=== PATIENT | female | born 1950 | race Caucasian/White ===

== ENCOUNTER 2022-07-23 08:04 | Outpatient (CLI) | payer MEDICARE, SELFPAY | END 2022-07-23 08:05 | disposition home or self-care (01) | LOC: NFLDREF 07-26 11:50 | PROVIDERS: PCP Family Medicine; Referring Provider Family Medicine; Visit Provider Family Medicine | DX: E78.5 Hyperlipidemia, unspecified (principal); E03.9 Hypothyroidism, unspecified; I10 Essential (primary) hypertension; E05.00 Thyrotoxicosis with diffuse goiter without thyrotoxic crisis or storm | CPT/HCPCS: 80053; 80061; 84443 ==

== ENCOUNTER 2022-09-22 11:51 | Outpatient (CLI) | payer MEDICARE, SELFPAY ==
--- NOTE | 2022-09-22 13:00 | CRLHL7_ITS ---
For Patients: As a result of the Century Cures Act, medical imaging exams and procedure reports are released immediately into your electronic medical record. You may view this report before your referring provider. If you have questions, please contact your health care provider. DXA BONE MINERAL DENSITY STUDY Current height (in): 52. Weight (lb): 140.0. Menopause age: 52. Ethnicity: White. 1. Have you had a previous hip or vertebral fracture? No. 2. Have you had any fractures during your adult life which did not result from significant trauma (e.g., auto accident)? No. 3. Did either of your parents have a hip fracture? No. 4. Do you smoke? No. 5. Have you ever taken Glucocorticoids? No. 6. Do you have rheumatoid arthritis? No. 7. Do you have secondary osteoporosis? No. 8. Do you drink 3 or more alcoholic drinks per day? No. 9. Are you being treated for osteoporosis? No. 10. Have you ever taken any of the following medications: Actonel, Evista, Fosamax, Miacalcin, Reclast, Boniva, Forteo, HRT (i.e. estrogen/hormone therapy), Protelos, Prolia, Vitamin D, Calcium, other ??? please specify. ANSWER: Yes, vitamin D, calcium. 11. Do you have any of the following medical conditions: Anorexia or bulimia, asthma or emphysema, end stage renal disease, hyperparathyroidism, any seizure disorders, cancer, inflammatory bowel diseases, hysterectomy, other ??? please specify. ANSWER: Yes, Graves??? disease. 12. What was your maximum height (inches)? 63. 13. Do you perform weight bearing exercise regularly? No. 14. Do you regularly consume dairy products? Yes. 15. Do you drink caffeinated beverages? Yes. 16. At what age did your period start? 13. 17. Are you premenopausal? No. 18. How many full term pregnancies have you had? 0. 19. Have you ever missed your period for more than 6 months in a row (not including or menopause)? No. TECHNIQUE: Bone mineral density study was performed using the [employer]. FINDINGS: The results of the study expressed as bone mineral density (BMD) are as follows: Lumbar spine L1 to L3: BMD: 0.863 g/cm2. T-score: -1.4. Z-score: 0.8. Neck Left: BMD: 0.638 g/cm2. T-score: -1.9. Z-score: -0.0. Right: BMD: 0.600 g/cm2. T-score: -2.2. Z-score: -0.3. Total Left: BMD: 0.754 g/cm2. T-score: -1.5. Z-score: 0.1. Right: BMD: 0.649 g/cm2. T-score: -2.4. Z-score: -0.8. IMPRESSION: Osteopenia. FRAX 10-year Fracture Risk Major Osteoporotic Fracture: 13 percent Hip Fracture: 3.0 percent Reported Risk Factors: [place] () Neck BMD=0.600, BMI=24.8 Carlito Pruett M.D. Diagnostic Radiologist [email or web address] ALFONSO/alvin / be/Dictated by: Carlito Pruett MD @ 09/22/2022 3:32:00 PM (Electronically Signed)
== END 2022-09-22 11:52 | disposition home or self-care (01) ==
LOC: RAD 11:53
PROVIDERS: PCP Family Medicine; Visit Provider Family Medicine
DX: E05.00 Thyrotoxicosis with diffuse goiter without thyrotoxic crisis or storm (principal); Z78.0 Asymptomatic menopausal state; M85.89 Other specified disorders of bone density and structure, multiple sites
CPT/HCPCS: 77080

== ENCOUNTER 2023-07-04 08:30 | Outpatient (CLI) | payer MEDICARE, SELFPAY ==
--- OUTSIDE RECORDS SUMMARY | 2023-07-08 20:55 | XMS_ITS | Clinical Summary ---
Author Name Unknown Organization [facility] Address [place], [place] [address] Care Team Providers Care Acoustical Engineer Name Role Phone Isma Hsu MD Primary Care Provider [phone] Allergies Active Allergy Reactions Criticality Noted Date Comments Sulfa (Sulfonamide Antibiotics) Other - Describe In Comment Field Unknown 08/04/2014 Joint pain. Medications Medication Sig Dispensed Refills Start Date End Date Status artificial tears, hypromellose 0.5%, (ISOPTO TEARS) 0.5 % ophthalmic drop Place 1 Drop into both eyes 4 times daily if needed for Dry Eyes. Active cholecalciferol (VITAMIN D3) 5,000 unit capsule Take 5,000 Units by mouth once daily. 40 units = 1 mcg (5000 units = 125 mcg) Active C,E,zinc,copper 11/yjmli9i/lut (OCUVITE ADULT 50 PLUS ORAL) Take 1 capsule by mouth once daily. Active lactobacillus combination no.8 (ADULT PROBIOTIC ORAL) Takes probiotic gummy - 1 chew gummy daily. Active multivit-minerals/ folic acid (ADULT MULTIVITAMIN GUMMIES ORAL) Take 2 Tabs by mouth once daily. Active MAGNESIUM ORAL Take 1 tablet by mouth once daily. For cramps Active POTASSIUM ORAL Take 1 tablet by mouth once daily. 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 90 tablet 06/29/2019 Active atorvastatin (LIPITOR) 20 mg tabletIndications: Acute ischemic right BODY COMPONENT ENGINEER stroke (HC) Take 1 tablet by mouth once daily with evening meal. 90 tablet 06/28/2019 Active WalkerIndications: Closed trimalleolar fracture of right ankle, initial encounter Walker with front wheels for home use. 1 Each 12/29/2020 Active amLODIPine (NORVASC) 5 mg tablet Take 5 mg by mouth once daily. 10/09/2020 Active levothyroxine (SYNTHROID) 75 mcg tablet Take 75 mcg by mouth once daily. 10/08/2020 Active oxyCODONE-acetamin ophen (PERCOCET) 5-325 mg per tabletIndications: Closed displaced pilon fracture of left tibia, initial encounter,Other closed fracture of distal end of right fibula, initial encounter Take 1 tablet by mouth every 4 to 6 hours as needed for pain. Maximum of 10 tablets per 24 hours. Max acetaminophen dose: 4000 mg in 24 hours. 20 Tablet 01/02/2021 Active hydrOXYzine pamoate (VISTARIL) 25 mg capsuleIndications :Closed displaced pilon fracture of left tibia, initial encounter,Other closed fracture of distal end of right fibula, initial encounter Take 1-2 Capsules (25-50 mg) by mouth every 6 hours if needed for nausea/vomiting. 15 Capsule 01/02/2021 Active CrutchIndications: Closed displaced pilon fracture of left tibia, initial encounter For home use. 2 Each 01/02/2021 Active enoxaparin (LOVENOX) 40 mg/0.4 mL injectionIndicatio ns:Closed displaced pilon fracture of left tibia, initial encounter,Other closed fracture of distal end of right fibula, initial encounter,Acute ischemic right BODY COMPONENT ENGINEER stroke (HC) Inject 40 mg subcutaneously one time daily. 14 Each 01/02/2021 Active omega-3 fatty acids (FISH OIL CONCENTRATE ORAL) Take 1 Tablet by mouth once daily. Active ascorbic acid, vitamin C, (Vitamin C) 100 mg tablet Take 100 mg by mouth once daily. Active Coenzyme Q10 (Co Q-10) 10 mg cap Take 10 mg by mouth once daily. Active Active Problems Problem Noted Date Diagnosed Date Acute ischemic right BODY COMPONENT ENGINEER stroke 06/26/2019 Postablative hypothyroidism 06/26/2019 Left homonymous hemianopsia 06/26/2019 Immunizations Name Administration Dates Next Due Influenza, High-dose Inactivated 08/23/2012 Influenza, IIV3 (Age >=3 years) 04/07/2012 Influenza, Inactivated AIIV4 (Age 65+ Years) Preserv Free 02/17/2021 Pneumococcal Poly,23-Valent (Pneumovax) 08/27/19 10 Tdap 08/30/2012,04/07/2012 Family History Medical History Relation Name Comments Cancer Brother a rare form, in lymph nodes, in teeth; age 61, had a large mass between eyes Atrial fibrillation Father age 54, probably from cocaine use Stroke Maternal Grandfather Cancer-breast Maternal Grandmother Heart attack Maternal Grandmother 95 Heart failure Maternal Grandmother Cataracts Mother Diabetes type II Mother Heart attack Mother massive Leukemia Mother of it 83 Stroke Paternal Grandmother Brain cancer Sister treated at [facility] Diabetes type II Sister Diabetic kidney disease Sister Relation Name Status Comments Brother Father Maternal Grandfather Maternal Grandmother Mother Paternal Grandmother Sister Social History Tobacco Use Types Packs/Day Years Used Date Smoking Tobacco: Former Cigarettes 1 40 1 969 - 1980 Smokeless Tobacco: Never Tobacco Cessation:Counseling Given: Yes Alcohol Use Standard Drinks/Week Comments Not Currently 0 (1 standard drink = 0.6 oz pur e alcohol) Social Connections Answer Date Recorded Frequency of Communication with Friends and Fami ly Not on file 03/12/2021 Financial Resource Strain Answer Date R ecorded Difficulty of Paying Living Expenses Not on file 03/12/2021 Difficulty of Paying Living Expenses Not on file 03/12/2021 Sex and Gender Information Value Date Recorded Sex Assigned at Not on file Gender Identity Not on file Sexual Orientation Not on file Obstetrics History Last Filed Vital Signs Vital Sign Reading Time Taken Comments Blood Pressure 154/89 07/29/2021 8:11 AM CDT Pulse 76 07/29/2021 8:11 AM CDT Temperature 36.2 ??C (97.2 ??F) 01/02/2021 4:24 PM CD T Respiratory Rate 14 05/26/2021 8:46 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 Oxygen Saturation 92% 01/02/2021 6:00 PM CDT Inhaled Oxygen Concentration - - Weight 66.4 kg (146 lb 6.4 oz) 01/02/2021 11:39 AM CDT Height 158.8 cm (5' 2.5) 01/02/2021 11:39 AM CD T Body Mass Index 26.35 01/02/2021 11:39 AM CDT Plan of Treatment Health Maintenance Due Date Last Done Comments Depression screening for age 12+ 1962 BMI (ht and wt on same day) for age 18+ 1968 Hepatitis C screening for ag e 18-79 1968 Colonoscopy through age 75 12/15/1995 Mammogram for age 45-75 12/15/1995 Zoster (shingles) series for age 50+ (1 of 2) 2000 DEXA/DXA scan for age 65+ 12/15/2015 Medicare Wellness for age 65+ 12/15/2015 Pneumococcal series for age 65+ (2 of 2 - PCV) 12/15/2015 08/26/2009 Tetanus booster 08/30/2022 08/30/2012, 04/07/2012 COVID-19 vaccine series ( season) 2022 06/27/2021, 11/11/2020, 05/01/2020, Additional history exists Influenza for age 65+ 11/20/2023 02/17/2021 , 08/23/2012, 04/07/2012 Lipids for age 45-75 06/26/2024 06/27/2019 Tdap Completed 08/30/2012, 04/07/2012 Medical Devices Implanted Type Area Steel Loader Device Identifier Shelf Expiration Date Model / Serial / Lot Screw Sm Joint 3.5x50mm Variax 2 Lock Titnm - [id number] Implanted:Qty : 1 on 01/02/2021 by Saeed Vasquez DPM at [facility] Ortho Imp.,Screw s & Plates Right: Ankle [employer] 01/02/2021 [id number] / / N/A Plate Ankle 5 Hole Variax - [id number] Implanted:Qty : 1 on 01/02/2021 by Saeed Vasquez DPM at [facility] Ortho Imp.,Screw s & Plates Right: Ankle [employer] 01/02/2021 [id number] / / NA Screw Sm Joint 3.5x14mm Variax 2 Lock Titnm - [id number] Implanted:Qty : 4 on 01/02/2021 by Saeed Vasquez DPM at [facility] Ortho Imp.,Screw s & Plates Right: Ankle [employer] 01/02/2021 [id number] / / N/A Screw Sm Joint 3.5x12mm Variax 2 Lock Titnm - [id number] Implanted:Qty : 1 on 01/02/2021 by Saeed Vasquez DPM at [facility] Ortho Imp.,Screw s & Plates Right: Ankle [employer] 01/02/2021 [id number] / / N/A Washer For Variax 2 Screws Implanted:Qty : 3 on 01/02/2021 by Saeed Vasquez DPM at [facility] Ortho Implants, Misc. Right: Ankle [employer] 01/02/2021 [id number] / / N/A Description:Washer for Varia x 2 screws Screw Sm Joint 4x34mm [employer] Part Thread Titnm - [id number] Implanted:Qty : 1 on 01/02/2021 by Saeed Vasquez DPM at [facility] Right: Ankle [employer] 01/02/2021 [id number] / / N/A Screw Sm Joint 4x36mm [employer] Part Thread Titnm - [id number] Implanted:Qty : 1 on 01/02/2021 by Saeed Vasquez DPM at [facility] Right: Ankle [employer] 01/02/2021 [id number] / / N/A Screw Sm Joint 4x40mm [employer] Part Thread Titnm - [id number] Implanted:Qty : 1 on 01/02/2021 by Saeed Vasquez DPM at [facility] Right: Ankle [employer] 01/02/2021 [id number] / / N/A Screw Sm Joint 3.5x26mm Variax 2 Bone - [id number] Implanted:Qty : 2 on 01/02/2021 by Saeed Vasquez DPM at [facility] Right: Ankle [employer] 01/02/2021 [id number] / / N/A Screw Sm Joint 3.5x46mm Variax 2 Lock Titnm - [id number] Implanted:Qty : 1 on 01/02/2021 by Saeed Vasquez DPM at [facility] Right: Ankle [employer] 01/02/2021 [id number] / / N/A Explanted Type Area Steel Loader Device Identifier Shelf Expiration Date Model / Serial / Lot K-Wire 2mm Variax W/Stop - [id number] Explanted:Qty: 1 on 01/02/2021 by Saeed Vasquez DPM at [facility] Right: Ankle [employer] 01/02/2021 [id number] / / N/A Procedures Procedure Name Priority Date/Time Associated Diagnosis Comments LIPID PANEL Early AM 06/27/2019 6:06 AM CDT from Last 3 Months or Most Recently Relevant to Health Maintenance Results * (ABNORMAL) Lipid Panel (06/27/2019 6:06 AM CDT) CHOLESTEROL,TOTAL 192 100 - 199 mg/dL 06/27/2019 7:12 AM CDT [facility] TRIGLYCERIDES 86 <150 mg/dL 06/27/2019 7:12 AM CDT [facility] HDL CHOLESTEROL 46 >40 mg/dL 0 7:12 AM CDT [facility] NON-HDL CHOLESTEROL 146(H) <145 mg/dl 06/27/2019 7:12 AM CDT [facility] CHOL/HDL RATIO 4.17 <4.50 06/27/2019 7:12 AM CDT [facility] LDL CHOLESTEROL 129 <=130 mg/dL 06/27/2019 7:12 AM CDT [facility] PROVIDER ORDERED STATUS RANDOM 06/27/2019 7:12 AM CDT [facility] Blood BLOOD SPECIMEN / Unknown Venipuncture / Unknown 06/27/2019 6:06 AM CDT 06/27/2019 6:47 AM CDT Jere Rosen MD CHEMISTRY [facility] [address] [place] [address], from Last 3 Months or Most Recently Relevant to Health Maintenance Advance Directives * Full Code (Latest Code Status on File) Date Activated Date Inactivated Comments 01/02/2021 11:13 AM 01/02/2021 9:28 PM Question Answer Comments Code Status Discussion: Discussed * Full Code Date Activated Date Inactivated Comments 06/26/2019 6:40 PM 06/28/2019 2:44 PM Question Answer Comments Code Status Discussion: Per Advance Care Plan Care Teams Acoustical Engineer Relationship Specialty Start Date End Date Isma Hsu MD [address] [place] [id number] PCP - General Family Practice 08/09/19
== END 2023-07-04 08:31 | disposition home or self-care (01) ==
LOC: NFLDREF 07-08 20:53
PROVIDERS: PCP Family Medicine; Referring Provider Family Medicine; Visit Provider Family Medicine
DX: E78.5 Hyperlipidemia, unspecified (principal); E03.9 Hypothyroidism, unspecified; I10 Essential (primary) hypertension
CPT/HCPCS: 80053; 80061; 84443

== ENCOUNTER 2023-08-23 10:11 | Outpatient (CLI) | payer MEDICARE, SELFPAY ==
--- OUTSIDE RECORDS SUMMARY | 2023-08-23 10:15 | XMS_ITS | Clinical Summary ---
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 Postablative hypothyroidism 06/26/2019 Left homonymous [...] Paternal Grandmother Brain cancer Sister treated at [facility] Diabetes type II Sister Diabetic kidney [...] T Respiratory Rate 14 05/26/2021 8:46 AM 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 Oxygen Saturation 92% 01/02/2021 6:00 PM CDT [...] 08/30/2012, 04/07/2012 Medical Devices Implanted Type Area Water Purification Chemist Device Identifier Shelf Expiration Date Model / Serial / Lot Screw Sm Joint 3.5x50mm Variax 2 Lock Titnm - [id number] Implanted:Qty : 1 on 01/02/2021 by Saeed Vasquez DPM at [facility] Ortho Imp.,Screw s & Plates Right: Ankle [employer] 01/02/2021 [id number] / / N/A Plate Ankle 5 Hole [employer]ariax - [id number] Implanted:Qty : 1 on 01/02/2021 by Saeed Vasquez DPM at [facility] Ortho Imp.,Screw s & Plates Right: Ankle [employer] 01/02/2021 [id number] / / NA Screw Sm Joint 3.5x14mm Variax 2 Lock Titnm - [id number] Implanted:Qty : 4 on 01/02/2021 by Saeed Vasquez DPM at [facility] Ortho Imp.,Screw s & Plates Right: Ankle [employer] 01/02/2021 [id number] / / N/A Screw Sm Joint 3.5x12mm V[employer]x 2 Lock Titnm - [id number] Implanted:Qty : 1 on 01/02/2021 by Saeed Vasquez DPM at [facility] Ortho Imp.,Screw s & Plates Right: Ankle [employer] 01/02/2021 [id number] / / N/A Washer For Variax 2 Screws Implanted:Qty : 3 on 01/02/2021 by Saeed Vasquez DPM at [facility] Ortho Implants, Misc. Right: Ankle [employer] 01/02/2021 [id number] / / N/A Description:Washer for Varia x 2 screws Screw Sm Joint 4x34mm [employer] Part Thread Titnm - [id number] Implanted:Qty : 1 on 01/02/2021 by Saeed Vasquez DPM at [facility] Right: Ankle [employer] 01/02/2021 [id number] / / N/A Screw Sm Joint 4x36mm [employer] Part Thread Titnm - [id number] Implanted:Qty : 1 on 01/02/2021 by Saeed Vasquez DPM at [facility] Right: Ankle [employer] 01/02/2021 [id number] / / N/A Screw Sm Joint 4x40mm [employer] Part Thread Titnm - [id number] Implanted:Qty : 1 on 01/02/2021 by Saeed Vasquez DPM at [facility] Right: Ankle [employer] 01/02/2021 [id number] / / N/A Screw Sm Joint 3.5x26mm Variax 2 Bone - [id number] Implanted:Qty : 2 on 01/02/2021 by Saeed Vasquez DPM at [facility] Right: Ankle [employer] 01/02/2021 [id number] / / N/A Screw Sm Joint 3.5x46mm Variax 2 Lock Titnm - [id number] Implanted:Qty : 1 on 01/02/2021 by Saeed Vasquez DPM at [facility] Right: Ankle [employer] 01/02/2021 [id number] / / N/A Explanted Type Area Water Purification Chemist Device Identifier Shelf Expiration Date Model / Serial / Lot K-Wire 2mm Variax W/Stop - [id number] Explanted:Qty: 1 on 01/02/2021 by Saeed Vasquez DPM at [facility] Right: Ankle [employer] 01/02/2021 [id number] / / N/A Procedures Procedure Name Priority Date/Time Associated Diagnosis Comments LIPID PANEL Early AM 06/27/2019 6:06 AM CDT from Last 3 Months or Most Recently Relevant to Health Maintenance Results * (ABNORMAL) Lipid Panel (06/27/2019 6:06 AM CDT) CHOLESTEROL,TOTAL 192 100 - 199 mg/dL 06/27/2019 7:12 AM CDT [facility] TRIGLYCERIDES 86 <150 mg/dL 06/27/2019 7:12 AM CDT [facility] HDL CHOLESTEROL 46 >40 mg/dL 0 7:12 AM CDT [facility] NON-HDL CHOLESTEROL 146(H) <145 mg/dl 06/27/2019 7:12 AM CDT [facility] CHOL/HDL RATIO 4.17 <4.50 06/27/2019 7:12 AM CDT [facility] LDL CHOLESTEROL 129 <=130 mg/dL 06/27/2019 7:12 AM CDT [facility] PROVIDER ORDERED STATUS RANDOM 06/27/2019 7:12 AM CDT [facility] Blood BLOOD SPECIMEN / Unknown Venipuncture / Unknown 06/27/2019 6:06 AM CDT 06/27/2019 6:47 AM CDT Jere Rosen MD CHEMISTRY [facility] [address] [place] [address], [place] from Last 3 Months or Most Recently [...] Discussion: Per Advance Care Plan Care Teams Lean Six Sigma Senior Specialist Relationship Specialty Start Date End Date Isma Hsu MD [address] [place] [address] PCP - General Family Practice 08/09/19
--- NOTE | 2023-08-23 10:30 | CRLHL7_ITS ---
For Patients: As a result of the Century Cures Act, medical imaging exams and procedure reports are released immediately into your electronic medical record. You may view this report before your referring provider. If you have questions, please contact your health care provider. DXA BONE MINERAL DENSITY STUDY Current height (in): 62.0. Weight (lb): 134.0. Menopause age: 52. Ethnicity: White. Reason for exam: Osteopenia. On Alendronate. 1. Have you had a previous hip or vertebral fracture? No. 2. Have you had any fractures during your adult life which did not result from significant trauma (e.g., auto accident)? Yes. 3. Did either of your parents have a hip fracture? No. 4. Do you smoke? No. 5. Have you ever taken Glucocorticoids? No. 6. Do you have rheumatoid arthritis? No. 7. Do you have secondary osteoporosis? No. 8. Do you drink 3 or more alcoholic drinks per day? No. 9. Are you being treated for osteoporosis? Yes. 10. Have you ever taken any of the following medications: Actonel, Evista, Fosamax, Miacalcin, Reclast, Boniva, Forteo, HRT (i.e. estrogen/hormone therapy), Protelos, Prolia, Vitamin D, Calcium, other ??? please specify. ANSWER: Yes, vitamin D, calcium, Fosamax. 11. Do you have any of the following medical conditions: Anorexia or bulimia, asthma or emphysema, end stage renal disease, hyperparathyroidism, any seizure disorders, cancer, inflammatory bowel diseases, hysterectomy, other ??? please specify. ANSWER: Yes, other; Graves. 12. What was your maximum height (inches)? 63. 13. Do you perform weight bearing exercise regularly? No. 14. Do you regularly consume dairy products? Yes. 15. Do you drink caffeinated beverages? Yes. 16. At what age did your period start? 13. 17. Are you premenopausal? No. 18. How many full-term pregnancies have you had? 0. 19. Have you ever missed your period for more than 6 months in a row (not including or menopause)? No. TECHNIQUE: Bone mineral density study was performed using the [employer]. FINDINGS: The results of the study expressed as bone mineral density (BMD) are as follows: Lumbar spine L1 to L3: BMD: 0.862 g/cm2. T-score: -1.4. Z-score: 0.8 Neck Left: BMD: 0.623 g/cm2. T-score: -2.0. Z-score: -0.1 Right: BMD: 0.584 g/cm2. T-score: -2.4. Z-score: -0.4 Total Left: BMD: 0.748 g/cm2. T-score: -1.6. Z-score: 0.1 Right: BMD: 0.648 g/cm2. T-score: -2.4. Z-score: -0.8 IMPRESSION: Osteopenia. *Comparison exams done prior to 08/2019 were performed on different unit, [employer]. COMPARISON: Compared with scan of 09/22/2022, the bone mineral density decreased by 0.2 percent at the spine and decreased by 0.5 percent at the hip. Carlito Pruett M.D. Diagnostic Radiologist [email or web address] Transcribed: 2:35 pm DW/Dictated by: Carlito Pruett MD @ 08/23/2023 12:20:00 PM (Electronically Signed)
== END 2023-08-23 10:12 | disposition home or self-care (01) ==
LOC: RAD 10:13
PROVIDERS: PCP Family Medicine; Visit Provider Family Medicine
DX: M85.80 Other specified disorders of bone density and structure, unspecified site (principal); M85.89 Other specified disorders of bone density and structure, multiple sites
CPT/HCPCS: 77080

== ENCOUNTER 2023-11-07 09:00 | Outpatient (CLI) | payer MEDICARE, SELFPAY ==
--- OUTSIDE RECORDS SUMMARY | 2023-11-08 08:40 | XMS_ITS | Clinical Summary ---
Author Organization [facility] Address [place], [place] [address] Care Team Providers Care Brace Maker Name Role Phone Isma Hsu MD Primary Care Provider [phone] Allergies Active Allergy Reactions Criticality Noted Date [...] (5000 units = 125 mcg) Active C,E,zinc,copper 11/tcxyp5g/lut (OCUVITE ADULT 50 PLUS ORAL) Take 1 [...] mg enteric coated tabletIndications: Acute ischemic right SCIENCE JOB TITLES stroke (HC) Take 1 tablet by mouth once daily with a meal. 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 Imp.,Screw s & Plates Right: Ankle [employer] [facility] [employer] 01/02/2021 [id number] / / N/A Plate Ankle 5 Hole Variax - [id number] Implanted:Qty : 1 on 01/02/2021 by Saeed Vasquez DPM at [facility] Orth[facility] Imp.,Screw s & Plates Right: Ankle [employer] [facility] 01/02/2021 [id number] / / NA Screw Sm Joint 3.5x14mm Variax 2 Lock Titnm - [id number] Implanted:Qty : 4 on 01/02/2021 by Saeed Vasquez DPM at [facility] Ortho Imp.,Screw s & Plates Right: Ankle [employer] 01/02/2021 [id number] / / N/A Screw Sm Joint 3.5x12mm Variax 2 Lock Titnm - [id number] Implanted:Qty : 1 on 01/02/2021 by Saeed Vasquez DPM at [facility] Ortho Imp.,Screw s & Plates Right: Ankle [employer] [facility] 01/02/2021 [id number] / / N/A Washer For Variax 2 Screws Implanted:Qty : 3 on 01/02/2021 by Saeed Vasquez DPM at [facility] Ortho Implants, Misc. Right: Ankle [facility] 01/02/2021 [id number] / / N/A Description:Washer for Varia x 2 screws Screw Sm Joint 4x34mm [employer] Part Thread Titnm - [id number] Implanted:Qty : 1 on 01/02/2021 by Saeed Vasquez DPM at [facility] Right: Ankle [facility] 01/02/2021 [id number] / / N/A Screw Sm Joint 4x36mm [employer] Part Thread Titnm - [id number] Implanted:Qty : 1 on 01/02/2021 by Saeed Vasquez DPM at [facility] Right: Ankle [facility] 01/02/2021 [id number] / / N/A Screw Sm Joint 4x40mm [employer] Part Thread Titnm - [id number] Implanted:Qty : 1 on 01/02/2021 by Saeed Vasquez DPM at [facility] Right: Ankle [facility] 01/02/2021 [id number] / / N/A Screw Sm Joint 3.5x26mm Variax 2 Bone - [id number] Implanted:Qty : 2 on 01/02/2021 by Saeed Vasquez DPM at [facility] Right: Ankle [facility] 01/02/2021 [id number] / / N/A Screw Sm Joint 3.5x46mm Variax 2 Lock Titnm - [id number] Implanted:Qty : 1 on 01/02/2021 by Saeed Vasquez DPM at [facility] Right: Ankle [facility] 01/02/2021 [id number] / / N/A Explanted Type Area Artist'S Model Device Identifier Shelf Expiration Date Model / Serial / Lot K-Wire 2mm Variax W/Stop - [id number] Explanted:Qty: 1 on 01/02/2021 by Saeed Vasquez DPM at [facility] Right: Ankle [facility] 01/02/2021 [id number] / / N/A Procedures Procedure Name Priority Date/Time Associated Diagnosis Comments LIPID PANEL Early AM 06/27/2019 6:06 AM CDT from Last 3 Months or Most Recently Relevant to Health Maintenance Results * (ABNORMAL) Lipid Panel (06/27/2019 6:06 AM CDT) CHOLESTEROL,TOTAL 192 100 - 199 mg/dL 06/27/2019 7:12 AM CDT [facility] TRIGLYCERIDES 86 <150 mg/dL 06/27/2019 7:12 AM CDT [facility] HDL CHOLESTEROL 46 >40 mg/dL 0 7:12 AM CDT [facility] NON-HDL CHOLESTEROL 146(H) <145 mg/dl 06/27/2019 7:12 AM CDT [facility] CHOL/HDL RATIO 4.17 <4.50 06/27/2019 7:12 AM CDT [facility] LDL CHOLESTEROL 129 <=130 mg/dL 06/27/2019 7:12 AM CDT [facility] PROVIDER ORDERED STATUS RANDOM 06/27/2019 7:12 AM CDT [facility] Blood BLOOD SPECIMEN / Unknown Venipuncture / Unknown 06/27/2019 6:06 AM CDT 06/27/2019 6:47 AM CDT Jere Rosen MD [facility] [address] [place] [address], [place] from Last 3 Months or Most [...] Discussion: Per Advance Care Plan Care Teams Brace Maker Relationship Specialty Start Date End Date Isma Hsu MD [address] [place] [id number] PCP - General Family Practice 08/09/19
== END 2023-11-07 09:01 | disposition home or self-care (01) ==
LOC: NFLDREF 11-08 08:39
PROVIDERS: PCP Family Medicine; Referring Provider Family Medicine; Visit Provider Family Medicine
DX: E03.9 Hypothyroidism, unspecified (principal)
CPT/HCPCS: 84443

== ENCOUNTER 2024-07-06 08:06 | Outpatient (CLI) | payer MEDICARE, SELFPAY | END 2024-07-06 08:07 | disposition home or self-care (01) | LOC: NFLDREF 07-10 16:46 | PROVIDERS: PCP Family Medicine; Referring Provider Family Medicine; Visit Provider Family Medicine | DX: E78.5 Hyperlipidemia, unspecified (principal); E03.9 Hypothyroidism, unspecified; I10 Essential (primary) hypertension | CPT/HCPCS: 80053; 80061; 84443 ==

== ENCOUNTER 2024-10-11 07:45 | Outpatient (CLI) | payer MEDICARE, SELFPAY ==
--- NOTE | 2024-10-11 08:30 | CRLHL7_ITS ---
For Patients: As a result of the Century Cures Act, medical imaging exams and procedure reports are released immediately into your electronic medical record. You may view this report before your referring provider. If you have questions, please contact your health care provider. DXA BONE MINERAL DENSITY STUDY Reason for exam: Other specified disorders of bone density. Current height (in): 62. Weight (lb): 117. Menopause age: 52. Ethnicity: White. 1. Have you had a previous hip or vertebral fracture? No. 2. Have you had any fractures during your adult life which did not result from significant trauma (e.g., auto accident)? Yes. 3. Did either of your parents have a hip fracture? No. 4. Do you smoke? No. 5. Have you ever taken Glucocorticoids? No. 6. Do you have rheumatoid arthritis? No. 7. Do you have secondary osteoporosis? No. 8. Do you drink 3 or more alcoholic drinks per day? No. 9. Are you being treated for osteoporosis? Yes. 10. Have you ever taken any of the following medications: Actonel, Evista, Fosamax, Miacalcin, Reclast, Boniva, Forteo, HRT (i.e. estrogen/hormone therapy), Protelos, Prolia, Vitamin D, Calcium, other ??? please specify. ANSWER: Yes, Vitamin D and Calcium. 11. Do you have any of the following medical conditions: Anorexia or bulimia, asthma or emphysema, end stage renal disease, hyperparathyroidism, any seizure disorders, cancer, inflammatory bowel diseases, hysterectomy, other ??? please specify. ANSWER: Yes, Graves??? disease. 12. What was your maximum height (inches)? 63. 13. Do you perform weight bearing exercise regularly? No. 14. Do you regularly consume dairy products? No. 15. Do you drink caffeinated beverages? Yes. 16. At what age did your period start? 13. 17. Are you premenopausal? No. 18. How many full term pregnancies have you had? 0. 19. Have you ever missed your period for more than 6 months in a row (not including or menopause)? No. TECHNIQUE: Bone mineral density study was performed using the [facility]. FINDINGS: The results of the study expressed as bone mineral density (BMD) are as follows: Lumbar spine L1 to L3: BMD: 0.846 g/cm2. T-score: -1.6. Z-score: 0.7. Neck Left: BMD: 0.627 g/cm2. T-score: -2.0. Z-score: 0.0. Right: BMD: 0.571 g/cm2. T-score: -2.5 . Z-score: -0.5. Total Left: BMD: 0.750 g/cm2. T-score: -1.6 . Z-score: 0.1. Right: BMD: 0.661 g/cm2. T-score: -2.3. Z-score: -0.6. IMPRESSION: Osteoporosis. *Comparison exams done prior to 08/2019 were performed on different unit, The Resumator. COMPARISON: Compared with scan of 09/12/2023, the bone mineral density has decreased by 1.8 percent at the spine and increased by 1.1 percent at the hip. Compared with scan of 09/22/2022, the bone mineral density has decreased by 0.2 percent at the spine and decreased by 0.5 percent at the hip. Breanna Fleming M.D. Diagnostic Radiologist [email or web address] MENG/prabha SP/Dictated by: Breanna Fleming MD @ 10/15/2024 7:11:00 AM (Electronically Signed)
== END 2024-10-11 07:46 | disposition home or self-care (01) ==
LOC: RAD 07:46
PROVIDERS: PCP Family Medicine; Visit Provider Family Medicine
DX: M85.80 Other specified disorders of bone density and structure, unspecified site (principal); M81.0 Age-related osteoporosis without current pathological fracture
CPT/HCPCS: 77080